=== PATIENT | female | born 1960 | race Caucasian/White ===

== ENCOUNTER 2019-07-30 15:58 | Outpatient (CLI) | payer BC ==
--- NOTE | 2019-08-07 16:21 | MMO ---
Bilateral MAMMO Bilat Screen [facility]. CLINICAL HISTORY: Patient is 58 years old and is seen for screening. The patient has no family history of breast cancer. The patient has no personal history of cancer. The patient has a history of Breast reduction in 2006. VIEWS: The views performed were: bilateral craniocaudal with tomosynthesis and bilateral mediolateral oblique with tomosynthesis. FILMS COMPARED: The present examination has been compared to a prior imaging study performed at [facility] on 01/25/2018. This study has been interpreted with the assistance of computer-aided detection. MAMMOGRAM FINDINGS: There are scattered fibroglandular densities. There are no suspicious masses, suspicious calcifications, or new areas of architectural distortion. IMPRESSION: THERE IS NO MAMMOGRAPHIC EVIDENCE OF MALIGNANCY. A ROUTINE FOLLOW-UP MAMMOGRAM IN 1 YEAR IS RECOMMENDED. THE RESULTS OF THIS EXAM WERE SENT TO THE PATIENT. ACR BI-RADS Category 1 - Negative MAMMOGRAPHY NOTE: 1. A negative mammogram report should not delay a biopsy if a dominant of clinically suspicious mass is present. 2. Approximately 10% to 15% of breast cancers are not detected by mammography. 3. Adenosis and dense breasts may obscure an underlying neoplasm. Reported by: JAYA MCBRIDE MD Electonically Signed: [id number]
== END 2019-07-30 15:59 | disposition home or self-care (01) ==
LOC: BICMAMMO 15:58
PROVIDERS: ATTEND Family Medicine
DX: Z12.31 Encounter for screening mammogram for malignant neoplasm of breast (principal); Z98.890 Other specified postprocedural states
CPT/HCPCS: 77063; 77067

== ENCOUNTER 2019-09-02 16:38 | Observation (INO) | payer BC ==
[2019-09-02 17:12] LABS: Bilirubin Negative (Negative); Blood, Urine Negative (Negative); Clarity Clear (Clear); Glucose, Urine (Dipstick) Normal (Negative); Leukocyte Negative Leu/uL (Negative); Nitrite Negative (Negative); Protein, Urine (Dipstick) Negative (Neg-Trace); Urobilinogen Normal mg/dL (Less than 2)
--- NOTE | 2019-09-02 18:35 | PDOC.FPRHP ---
- History of Present Illness Chief Complaint: Dizziness, Blurred Vision History of Present Illness: Mrs. Hsu is a 58 y/o female with a PMH significant for HTN who presents to the [facility] ED from the [facility] ED following an episode of dizziness and blurry vision. Per the patient, she experienced these symptoms at approximately 0900 while she was sitting at her desk at work. She became nauseated and attempted to ambulate to the restroom, but could not because "the room was moving". She subsequently presented to the [facility] ED where a HINTS exam was reportedly negative and her symptoms had resolved. Nevertheless, she was subsequently transferred to the [facility] ED for a thorough stroke work-up. Her only associated symptom prior to her presentation to the [facility] ED was nausea. All symptoms had resolved during her evaluation by [facility] and she reportedly felt "100% better". She denied any fall or blows to the head, similar episodes in the past, known cardiac dysfunction, chest pain, SOB or drug intoxication. ED Course: CT Head: NAF CXR: NAF Troponin: Negative - Allergies/Adverse Reactions Allergies Allergy/AdvReac Type Severity Reaction Status Date / Time Penicillins Allergy Verified 09/02/19 18:37 shellfish derived Allergy Verified 09/02/19 19:51 - Home Medications Medication Instructions Recorded Confirmed Type Lisinopril 1 tab PO DAILY 09/02/19 09/02/19 History Comments: Lisinopril 10 mg PO daily Multivitamin - History PMHx: HTN PSHx: None FHx: Father (Stroke), Mother (Aneurysm, Tobacco Abuse) Social: Social EtOH use, but denies tobacco and drug abuse. Patient works at a local shelter. - Review of Systems General: denies: fever/chills, weight/appetite/sleep changes Eyes: reports: vision changes (Patient reported blurry vision blurry that had resolved by the time of the evaluation.). denies: eye pain ENT: denies: nasal congestion, rhinorrhea Respiratory: denies: cough, congestion, shortness of breath Cardiovascular: denies: chest pain, palpitation, edema, paroxysmal nocturnal dyspnea, orthopnea Gastrointestinal: reports: nausea. denies: vomiting, diarrhea, constipation, abdominal pain, GI bleeding Genitourinary: denies: incontinence, dysuria, polyuria, discharge Skin: denies: rashes, lesions Musculoskeletal: reports: other (Reports feeling achey from being tense earlier in the day.). denies: pain, tenderness, stiffness, swelling, arthritis/ arthralgias Neurological: reports: other (Reports dizziness earlier in the day.). denies: numbness, syncope, seizure, weakness Psychological: denies: anxiety, depression - Vital signs BP: [132/80] HR: [74] RR: [18] Tmax: [98.0] Pox: [100]% on [RA] Wt: [] - Physical Exam Constitutional: NAD, awake, alert and oriented, well developed HEENT: normocephalic and atraumatic, PERRLA, EOMI, conjunctiva clear, no scleral icterus, grossly normal vision, grossly normal hearing, normal nasal mucosa, MMM, oropharynx clear, good dention Neck: supple, FROM, trachea midline, no LAD Chest: no-tender to palpation, no lesions Heart: RRR, normal S1/S2, no murmurs/rubs/gallops, pulses present, no edema Lungs: CTAB, no respiratory distress, good air movement, no rales/rhonchi, no wheezing, no retractions Abdomen: soft, non-tender, bowel sounds present, no masses/distention Musculoskeletal: normal structure, normal tone, ROM grossly normal Neurological: no focal deficit, CN II-XII intact, normal sensation, other (- Dysdiadokinesia, -Heel to Fowler, -Finger to Nose) Skin: no rash/lesions, no jaundice Heme/Lymphatic: no unusual bruising or bleeding, no purpura, no petechia Psychiatric: normal mood and affect, good judgment and insight, intact recent and remote memory FMR H&P: Results - Labs Result Diagrams: 09/03/19 05:50 09/03/19 05:50 Lab results: Urine Ketones Negative mg/dL (Negative) 09/02/19 16:51 Urine Blood Negative (Negative) 09/02/19 16:51 Urine Nitrite Negative (Negative) 09/02/19 16:51 Ur Leukocyte Esterase Negative Alejandra/uL (Negative) 09/02/19 16:51 - EKG Interpretation EKG: NSR - Radiology Interpretation CT scan - head Status: report reviewed by me (MARIANNA) Chest x-ray Status: report reviewed by me (MARIANNA) FMR H&P: A/P - Problem List (1) Dizziness Status: Acute Code(s): R42 - DIZZINESS AND GIDDINESS (2) Blurred vision Status: Acute Code(s): H53.8 - OTHER VISUAL DISTURBANCES (3) Ataxia Status: Acute Code(s): R27.0 - ATAXIA, UNSPECIFIED (4) HTN (hypertension) Status: Acute Code(s): I10 - ESSENTIAL (PRIMARY) HYPERTENSION - Plan 1. Stroke r/o -Symptoms of ataxia, dizziness and blurred vision concerning, but patient presented outside of tPA window -Physical exam unremarkable in ED, w/ all symptoms allegedly resolved -Troponins: Negative x1 -CT Brain: NAF -CXR: NAF -MRI Brain: Pending -MRA Head/Neck: Pending -Neuro Consult: Pending -PT/OT Consult: Pending -Bedside Swallow Study: Pending -Meclizine/Zofran PRN for dizziness and nausea sx's 2. HTN -Currently well controlled -BP: 132/80 on 09/02 -Patient reports taking Lisinopril 10 mg PO daily -Allow for permissive HTN -Hydralazine 10 mg PO Q4H PRN if BP > 220/110 -Continue to monitor Code: Full Diet: Heart Healthy Activity: Ad Zully DVT PPx: SCDs and Lovenox 40 mg SC Daily Dispo: Patient admitted to Stroke Floor for appropriate work-up. Await results of MRI Brain and MRA Head/Neck and coordinate w/ Neurology as required. Await results of PT/OT consult and bedside swallow study, trend troponins. Expected LOS < 48H. FMR H&P: Upper Level - Pertinent history I was present with the employee communications intern. I scribed the above HPI. I made edits above as needed. - Pertinent findings Neuro: No focal neuro defecit noted. CN 2-12 grossly normal. No cerebellar signs positive. Josefina Halpike and Alejandra maneuvar negative. - Plan Date/Time: 09/02/191832 I, Gus Morataya PGY-3, have evaluated this patient and agree with findings/ plan as outlined by employee communications intern resident. Pertinent changes/additions are listed here. At this time we will admit for TIA vs Stroke vs Vertigo. Will get MRA/MRI to evaluate blood vessels. Neuro consulted. I edited the above plan as needed. See above for detailed plan. Addendum - Attending - Attending Attestation Date/Time: 09/02/19 246 I personally evaluated the patient and discussed the management with Dr. Quintero and Dr. Morataya I agree with the History, Examination, Assessment and Plan documented above with any addition or exceptions noted below. Workup pending for evaluation of dizziness. Nuerologic findings positive at outside ER. Noted to have positive HINTs examine upon admission. Now with resolution of symptoms. Will monitor throughout the night. MRI/MRA in AM per patient/family request. PRN meclizine. NellieMD
[2019-09-02 20:36] VITALS: BMI 26.9
[2019-09-02] MEDS ORDERED: Acetaminophen 325 MG TAB PO PRN (20:36)
[2019-09-02] MEDS ORDERED: hydrALAZINE 20 MG/ML VIAL SLOW IVP PRN (20:36)
[2019-09-02] MEDS ORDERED: Ondansetron ODT 4 MG TAB PO PRN (20:36)
[2019-09-02] MEDS ORDERED: Senokot S 8.6-50 MG TAB PO PRN (20:36)
[2019-09-02] MEDS ORDERED: Atorvastatin Calcium 40 MG TAB PO SCH (21:00)
[2019-09-02] MEDS ORDERED: predniSONE 50 MG TAB PO SCH (21:30)
[2019-09-02] MEDS: Famotidine 20 MG TAB PO SCH (21:49)
[2019-09-03] MEDS ORDERED: predniSONE 50 MG TAB PO SCH ×2 (03:30→10:30)
[2019-09-03] MEDS ORDERED: Meclizine HCl 25 MG TAB PO PRN (03:56)
--- NOTE | 2019-09-03 06:14 | PDOC.FM ---
- Subjective Subjective: NAEO. Patient resting comfortably in bed. She states she is completely better as compared to yesterday. She denies any dizziness, blurry vision, headache or weakness. - Objective MAR Reviewed: Yes Vital Signs & Weight: Vital Signs (12 hours) Temp Pulse Resp BP Pulse Ox 09/03/19 04:00 97.8 F 60 16 108/71 95 09/03/19 00:31 98.5 F 68 16 121/74 95 09/02/19 19:15 98.0 F 73 20 153/89 H 100 Weight Weight 66.678 kg Result Diagrams: 09/03/19 05:50 09/03/19 05:50 Phys Exam - Physical Examination Constitutional: NAD HEENT: moist MMs, sclera anicteric Neck: supple, full ROM Respiratory: clear to auscultation bilateral Cardiovascular: RRR, no significant murmur Gastrointestinal: soft, non-tender, no distention, positive bowel sounds Neurological: non-focal, normal sensation, moves all 4 limbs Psychiatric: normal affect, A&O x 3 Skin: no rash, normal turgor, cap refill <2 seconds Dx/Plan (1) Ataxia Code(s): R27.0 - ATAXIA, UNSPECIFIED Status: Acute (2) Blurred vision Code(s): H53.8 - OTHER VISUAL DISTURBANCES Status: Acute (3) Dizziness Code(s): R42 - DIZZINESS AND GIDDINESS Status: Acute (4) HTN (hypertension) Code(s): I10 - ESSENTIAL (PRIMARY) HYPERTENSION Status: Acute - Plan Plan: 1. Stroke r/o Patient with dizziness, blurry vision and N. Resolution of symptoms. -Troponins: Negative x3 -CT Brain: NAF, CXR NAF -MRI Brain, MRA head/neck: Pending -PT/OT -Meclizine/Zofran PRN for dizziness and nausea sx's 2. HTN -aware, currently at goal -Patient reports taking Lisinopril 10 mg PO daily -Allow for permissive HTN -Hydralazine 10 mg PO Q4H PRN if BP > 220/110 -Continue to monitor Code: Full Diet: Heart Healthy Activity: Ad Zully DVT PPx: Lovenox 40 mg SC Daily Dispo: Await results of MRI Brain and MRA Head/Neck and coordinate w/ Neurology as required. Await results of PT/OT consult. Expected LOS < 48H. Case discussed with Dr. Miner Addendum - Attending - Attending Attestation Date/Time: 09/03/19 5850 I personally evaluated the patient and discussed the management with Dr. Crury. I agree with the History, Examination, Assessment and Plan documented above with any addition or exceptions noted below. Patient here with vertigo versus TIA. MRI pending. WIthout on neck imaging for now unless infarct found. Statin therapy. Likely discharge since she is at baseline and feeling well assuming normal MRI.
[2019-09-03 06:28] LABS: #Lymphocytes 0.6 thou/uL (1.20-3.40); #Monocytes 0.1 thou/uL (0.11-0.59); #Neutrophils 2.1 thou/uL (1.40-6.50); %Eosinophils 0.2 % (0.0-10.0); %Lymphocytes 21.3 % (21.0-51.0); %Monocytes 3.2 % (0.0-10.0); %Neutrophils 75.2 % (42.0-75.0); Hemoglobin 14.6 g/dL (12.0-16.0); Mean Corpuscular HGB CONC 35.3 g/dL (32.0-36.0); Mean Corpuscular Hemoglobin 33.6 pg (27.0-31.0); Mean Corpuscular Volume 95.2 fL (78.0-98.0); Mean Platelet Volume 6.8 fL (7.4-10.4); Platelet Count 219 thou/uL (130-400); RBC Distribution Width 11.2 % (11.5-14.5); Red Blood Cell (RBC) Count 4.36 mill/uL (4.20-5.40); White Blood Cell (WBC) Count 2.8 thou/uL (4.8-10.8)
[2019-09-03 06:44] LABS: ALT (SGPT) 27 U/L (8-55); AST (SGOT) 26 U/L (5-34); Albumin 4.6 g/dL (3.5-5.0); Alkaline Phosphatase 51 U/L (40-110); Anion Gap 13 mmol/L (10-20); BUN (Urea Nitrogen) 20 mg/dL (9.8-20.1); Bilirubin, Total 0.4 mg/dL (0.2-1.2); Calc. Creatinine Clearance 71 mL/min (70-130); Calcium 9.6 mg/dL (7.8-10.44); Carbon Dioxide 22 mmol/L (22-29); Cardiac Risk 3.8 (Less than 4.5); Chloride 105 mmol/L (98-107); Cholesterol 291 mg/dl (< 200 Desired); Estimated GFR-MDRD 64; Glucose 175 mg/dL (70-105); HDL Cholesterol 76 mg/dL (>60 Neg Risk); LDL Cholesterol, Calculated 199 mg/dL; Potassium 4.3 mmol/L (3.5-5.1); Protein, Total 8.6 g/dL (6.0-8.3); Sodium 136 mmol/L (136-145); Triglycerides 78 mg/dL (Less than 150)
[2019-09-03 06:53] LABS: Hemoglobin A1c 5.4 % (4.0-6.0)
[2019-09-03] MEDS: Famotidine 20 MG TAB PO SCH (08:48)
[2019-09-03] MEDS ORDERED: Enoxaparin Sodium 40 MG/0.4 ML SYRINGE SC SCH (09:00)
[2019-09-03] MEDS ORDERED: Aspirin 325 mg Enteric Coated Tablet PO SCH (09:00)
[2019-09-03] MEDS ORDERED: diphenhydrAMINE 50 MG CAP PO SCH (10:30)
[2019-09-03 11:36] VITALS: TEMP 98.5
[2019-09-03 11:58] VITALS: BP 155/80
--- NOTE | 2019-09-03 13:36 | MRI ---
MRI BRAIN WITH AND WITHOUT IV CONTRAST: HISTORY: Vertigo, dizziness COMPARISON: None CORRELATION:CT scan from previous day FINDINGS: No restricted diffusion is seen. No evidence of infarct, hemorrhage, mass, midline shift or abnormal extra-axial fluid collections is noted. No abnormal postcontrast enhancement is seen. The ventricular size is appropriate and the basilar cisterns are patent. There is mild mucosal disease in the paranasal sinuses. IMPRESSION: No evidence of acute intracranial process or mass.
--- NOTE | 2019-09-03 19:38 | DIS ---
DATE OF ADMISSION: 09/02/2019 DATE OF DISCHARGE: 09/03/2019 RESIDENT: Gabriela Curry MD ADMITTING ATTENDING: Edita Bills MD DISCHARGE ATTENDING: Jean Marie Miner MD PROCEDURES: None. CONSULTS: None. DISCHARGE MEDICATION: Lisinopril 1 tablet oral daily. DISCONTINUED MEDICATIONS: None. PRIMARY DIAGNOSIS: Transient ischemic attack. SECONDARY DIAGNOSIS: Hypertension. HISTORY OF PRESENT ILLNESS/HOSPITAL COURSE: This is a 58-year-old female with a past medical history significant for hypertension, who presented to the ER from [facility] ED after an episode of dizziness and blurry vision that occurred while sitting at a desk at work. The patient endorsed some nausea during this episode. The patient also felt very off balance as well. The son reported that she also had abnormal speech that was not slurred. The patient had a negative HINTS exam reportedly at the [facility]. By the time that the patient was evaluated by in the ER by the medicine team, she reportedly had already felt 100% better. The patient had a CT brain, chest x-ray and troponin all returned negative. The patient was admitted to the Stroke Unit for observation. The patient remained vitally stable throughout her stay. The patient also had an MRI brain done and that was normal. The patient was continued on home lisinopril. Unsure if this patient's episode due to TIA vs inner ear issue. Recommended the patient to start statin due to LDL being greater than 190 and family history. The patient would like to try natural remedies to help get LDL down prior to starting a statin. This can be rechecked in the outpatient setting in 2-3 months. She is also going to make lifestyle changes such as diet and exercise. DISPOSITION: Stable. DISCHARGE INSTRUCTIONS: 1. Location: Home. 2. Diet: Regular. 3. Activity: Ad humberto. 4. Follow up with PCP, Kyaw Almanzar within 7 days. Job ID: [id number] [id number]
[2019-09-04] MEDS ORDERED: Lisinopril 10 MG TAB PO SCH (09:00)
== END 2019-09-03 15:02 | disposition home or self-care (01) ==
LOC: ERS 16:38 → 2SE 18:17
PROVIDERS: ADMIT Student in an Organized Health Care Education/Training Program; ATTEND Student in an Organized Health Care Education/Training Program
DX: G45.9 Transient cerebral ischemic attack, unspecified (principal); I10 Essential (primary) hypertension; Z79.899 Other long term (current) drug therapy; Z88.0 Allergy status to penicillin; Z91.013 Allergy to seafood
CPT/HCPCS: 36415; 70553; 80053; 80061; 81003; 83036; 85025; 93005; 96372; 96374; G0378; J1650; J7512; Q0163

== ENCOUNTER 2022-01-13 09:15 | Outpatient (CLI) | payer BC | END 2022-01-13 09:16 | disposition home or self-care (01) | LOC: BICMAMMO 09:15 | PROVIDERS: ATTEND Family Medicine | DX: Z12.31 Encounter for screening mammogram for malignant neoplasm of breast (principal); Z98.82 Breast implant status | CPT/HCPCS: 77063; 77067 ==

== ENCOUNTER 2022-07-14 10:26 | Outpatient (CLI) | payer BC | END 2022-07-14 10:27 | disposition home or self-care (01) | LOC: BICRAD 10:26 | PROVIDERS: ATTEND Family Medicine | DX: M16.11 Unilateral primary osteoarthritis, right hip (principal) ==

== ENCOUNTER 2023-05-31 09:15 | Outpatient (CLI) | payer BC | END 2023-05-31 09:16 | disposition home or self-care (01) | LOC: CT 09:15 | PROVIDERS: ATTEND Surgery | DX: K63.89 Other specified diseases of intestine (principal) | CPT/HCPCS: 74177; 74178; 82565 ==

== ENCOUNTER 2023-06-01 12:46 | Outpatient (CLI) | payer BC ==
[2023-06-01 13:41] LABS: #Basophils 0.1 10x3/uL (0.0-0.2); #Monocytes 0.6 10x3/uL (0.0-1.1); %Basophils 0.7 % (0.0-2.0); %Eosinophils 0.6 % (0.0-6.0); %Lymphocytes 31.9 % (18.0-47.0); %Monocytes 8.3 % (0.0-10.0); %Neutrophils 58.1 % (40.0-75.0); Hemoglobin 11.9 g/dL (12.0-15.5); Mean Corpuscular HGB CONC 33.1 g/dL (32.0-36.0); Mean Corpuscular Hemoglobin 32.2 pg (27.0-33.0); Mean Platelet Volume 9.5 fl (7.4-10.4); Platelet Count 272 10x3/uL (150-450); RBC Distribution Width 13.1 % (11.5-14.5); White Blood Cell (WBC) Count 6.9 10x3/uL (3.5-10.5)
[2023-06-01 13:50] LABS: Anion Gap 12 mmol/L (10-20); BUN (Urea Nitrogen) 22 mg/dL (9.8-20.1); Calc. Creatinine Clearance 0 mL/min (70-130); Calcium 9.1 mg/dL (7.8-10.44); Carbon Dioxide 26 mmol/L (23-31); Chloride 106 mmol/L (98-107); Estimated GFR 74; Glucose 99 mg/dL (80-115); Potassium 3.8 mmol/L (3.5-5.1); Sodium 140 mmol/L (136-145)
[2023-06-01 19:59] LABS: Hemoglobin A1c 5.3 % (4.0-6.0)
== END 2023-06-01 12:47 | disposition home or self-care (01) ==
LOC: LABBT 12:46
PROVIDERS: ATTEND Surgery
DX: Z01.818 Encounter for other preprocedural examination (principal); K63.89 Other specified diseases of intestine
CPT/HCPCS: 80048; 83036; 85025; 93005; 93010

== ENCOUNTER 2023-08-03 06:07 | Day surgery (SDC) | payer BC ==
[2023-07-25 15:42] VITALS: BMI 25.7
[2023-08-03] MEDS ORDERED: Bupivacaine 0.25% HCL 30 ML VIAL ONE (06:39)
[2023-08-03] MEDS ORDERED: Lidocaine 2% PF 5 ML VIAL ONE (06:39)
[2023-08-03] MEDS ORDERED: EPINEPHrine 1 MG/ML AMP ONE (06:39)
[2023-08-03 06:49] LABS: #Eosinphils 0.1 thou/uL (0.0-0.7); #Monocytes 0.4 thou/uL (0.11-0.59); %Basophils 0.7 % (0.0-1.0); %Eosinophils 2.8 % (0.0-10.0); %Lymphocytes 40.3 % (21.0-51.0); %Monocytes 9.4 % (0.0-10.0); %Neutrophils 46.6 % (42.0-75.0); Hematocrit 37.2 % (36.0-47.0); Hemoglobin 12.2 g/dL (12.0-16.0); Mean Corpuscular HGB CONC 32.8 g/dL (32.0-36.0); Mean Corpuscular Hemoglobin 31.8 pg (27.0-31.0); Mean Corpuscular Volume 96.9 fl (78.0-98.0); Mean Platelet Volume 9.1 fL (7.4-10.4); Platelet Count 243 10x3/uL (130-400); RBC Distribution Width 13.4 % (11.5-14.5); Red Blood Cell (RBC) Count 3.84 mill/uL (4.20-5.40); White Blood Cell (WBC) Count 4.2 10x3/uL (4.8-10.8)
[2023-08-03] MEDS ORDERED: PROPOFOL 40 ML ONE (06:49)
[2023-08-03] MEDS ORDERED: Midazolam HCl 2 mg/2 ml Vial ONE (06:49)
[2023-08-03] MEDS ORDERED: CEFAZOLIN 2 GM VIAL ONE (06:57)
[2023-08-03] MEDS ORDERED: Sodium Chloride 0.9% 0 ML ONE (06:57)
[2023-08-03] MEDS ORDERED: LevoFLOXacin 500 mg/D5W 100 ML BAG ONE (07:08)
[2023-08-03 07:14] LABS: Anion Gap 12 mmol/L (10-20); BUN (Urea Nitrogen) 14 mg/dL (9.8-20.1); Calc. Creatinine Clearance 67 mL/min (70-130); Calcium 9.2 mg/dL (7.8-10.44); Carbon Dioxide 24 mmol/L (23-31); Chloride 106 mmol/L (98-107); Estimated GFR 75; Glucose 99 mg/dL (80-115); Potassium 4.2 mmol/L (3.5-5.1); Sodium 138 mmol/L (136-145)
[2023-08-03] MEDS ORDERED: ePHEDrine Sulfate 50 MG/10 ML VIAL ONE (07:29)
== END 2023-08-03 08:31 | disposition home or self-care (01) ==
LOC: SDC 06:07
PROVIDERS: ATTEND Surgery
PROC: 0JH60WZ Insertion of Totally Implantable Vascular Access Device into Chest Subcutaneous Tissue and Fascia, Open Approach (ICD-10-PCS; principal; 2023-08-03)
DX: C18.9 Malignant neoplasm of colon, unspecified (principal)
CPT/HCPCS: 71045; 80048; 85025; C1788; J0171; J1642; J1956; J2001; J2250; J2704; J3490; S0020